=== PATIENT | male | born 1950 | race Two or more races ===

== ENCOUNTER 2023-03-15 10:36 | Emergency (ER) | payer OTHER ==
[~2023-03-15] VITALS: Ht 175.3 cm; Wt 96.6 kg
--- NOTE | 2023-03-15 10:50 | NUR ---
PATIENT CAME WITH LEFT FOOT PAIN ,ALERT ,ORIENTED ,ON ROOM AIR.PLACED ON BED ,ATTACHED TO MONITOR.
--- NOTE | 2023-03-15 11:48 | NUR ---
DR SAUCEDO AT BED SIDE.
[2023-03-15] MEDS ORDERED: HYDROCODONE/APAP 10/325MG TABLET ONE (11:51)
[2023-03-15] MEDS ORDERED: KETOROLAC TROMETHAMINE INJ 30 MG/ML VIAL ONE (11:51)
[2023-03-15] MEDS ORDERED: HYDR-3980 PO (11:55)
[2023-03-15] MEDS ORDERED: KETOROLAC TROMETHAMINE INJ 30 MG/ML VIAL IM ONE (12:00)
[2023-03-15] MEDS ORDERED: HYDROCODONE/APAP 10/325MG TABLET PO ONE (12:00)
--- NOTE | 2023-03-15 12:05 | NUR ---
Patient discharged to home in stable condition. Written and verbal after care instructions given. Patient verbalizes understanding of instruction.
[2023-03-15 12:06] VITALS: BP 148/96; TEMP 98
== END 2023-03-15 12:06 | disposition home or self-care (01) ==
LOC: ER 10:51
DX: M72.2 Plantar fascial fibromatosis (principal); I10 Essential (primary) hypertension; F17.200 Nicotine dependence, unspecified, uncomplicated; Z79.899 Other long term (current) drug therapy
CPT/HCPCS: 99283; 96372; J1885